=== PATIENT | male | born 1960 | race Hispanic/Latino ===

== ENCOUNTER 2019-04-27 20:49 | Emergency (ER) | payer SELFPAY ==
[2019-04-27] MEDS ORDERED: SODIUM CHLORIDE 0.9% 500 ML 500 ML IV ONE ×2 (21:01→22:25)
[2019-04-27] MEDS ORDERED: MORPHINE 4 MG/1 ML INJ IV ONE (21:01)
[2019-04-27] MEDS ORDERED: ONDANSETRON 4 MG/2 ML INJ IV ONE (21:01)
[2019-04-27 21:44] LABS: Basophils % (Auto) 0.3 % (0.0-1.8); Eosinophils % (Auto) 0.1 % (0.0-4.3); Hematocrit 49.4 % (35.5-45.6); Hemoglobin 16.6 gm/dl (11.8-15.2); Lymphocytes # (Auto) 1.1 K/mm3 (1.2-5.4); Lymphocytes % (Auto) 8.8 % (13.4-35.0); Mean Corpuscular HGB Conc 34 % (32-34); Mean Corpuscular Volume 94 fl (84-94); Monocytes # (Auto) 0.4 K/mm3 (0.0-0.8); Monocytes % (Auto) 3.4 % (0.0-7.3); Platelet Count 201 K/mm3 (140-440); Red Blood Count 5.28 M/mm3 (3.65-5.03); Red Cell Distribution Width 13.9 % (13.2-15.2)
--- NOTE | 2019-04-27 21:52 | Cat Scan Report ---
CT ABDOMEN AND PELVIS WITHOUT CONTRAST HISTORY: Abdominal pain, nausea, vomiting. COMPARISON: None TECHNIQUE: Routine abdominal and pelvic CT exam performed without contrast. Lack of intravenous cont rast limits evaluation of the vascular and solid organs.. All CT scans at this location are performed using CT dose reduction for ALARA by means of automated exposure control. FINDINGS: CT ABDOMEN: Lung Bases: No significant abnormality. Liver: No significant abnormality. Biliary: No significant abnormality. Spleen: No significant abnormality. Unenlarged. Pancreas: No significant abnormality. Adrenals: No significant abnormality. Kidneys: There is a tiny 1 mm nonobstructing stone in the mid left kidney. There is no hydronephrosis . Lymphatics: No lymphadenopathy. Vasculature: No significant abnormality. Bowel/Peritoneum: Mild gaseous distention of the stomach without evidence of obstruction. No bowel ob struction. No free air, pneumatosis, portal venous gas. No inflammatory changes. Normal appendix. CT PELVIC: : No significant abnormality. Lymphatics: No lymphadenopathy. Osseous Structures: No aggressive appearing osseous lesions. There is advanced degenerative disc dise ase at L3-L4 in the lumbar spine with significant disc height loss and reactive endplate cystic aguilar e and sclerosis. There is advanced DJD in the left hip and mild DJD in the right. Additional Findings: None IMPRESSION: 1. No acute findings. 2. Tiny 1 mm nonobstructing left intrarenal stone. Signer Name: Jarrod Massey MD Signed: 04/27/2019 9:47 PM Workstation Name: [id number]
[2019-04-27 21:55] LABS: INR 1.36 (0.87-1.13)
[2019-04-27 21:57] LABS: Alanine Aminotransferase 18 units/L (7-56); BUN/Creatinine Ratio 27; Blood Urea Nitrogen 19 mg/dL (9-20); Hemolysis Index 12; Partial Thromboplastin Time 35.8 Sec. (24.2-36.6)
[2019-04-27 22:00] LABS: Bilirubin,Direct < 0.2 mg/dL (0-0.2)
--- NOTE | 2019-04-27 22:25 | Event Note ---
Face to Face: For this encounter I have reviewed the PA/[employer] APPRENTICE documentation, treatment plan, medical decision making, and I had face to face time with this patient. I evaluated Mr. Chen. He presents with vomiting diarrhea left lower quadrant abdominal pain. I reviewed workup. He suspects food poisoning for eating days old food. I concur with this diagnosis. Discharged back to assisted facility. With elevated lactic acid do not suspect sepsis. There is no indication of SIRS.
--- NOTE | 2019-04-27 22:29 | Emergency Department Report ---
ED General Adult HPI - General Chief complaint: GI Bleed Stated complaint: N/V/D Time Seen by Provider: 04/27/19 21:05 Source: patient Mode of arrival: Ambulatory Limitations: Physical Limitation - History of Present Illness Initial comments: Patient is a 58-year-old male who presents emergency room with complaints of "food poisoning." He states he has associated nausea, vomiting, diarrhea that began earlier today. He states he has had approximate 4 episodes of each. States he has left upper quadrant abdominal pain. he states that he ate some ch icken in the half-way last night and believes that it was left over from a few days ago. pt was given Pepto-Bismol and Imodium by the half-way. He states that his vomitus appeared dark after the pepto bismol. He denies any hematochezia or black tarry stools or fever. pt has a past medical history of diabetes and PE. 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 He denies any NSAID use. Severity scale (0 -10): 5 - Related Data Previous Rx's Medication Instructions Recorded Last Taken Type Ondansetron [Zofran Odt] 4 mg PO Q8HR PRN #7 tab.rapdis 04/27/19 Unknown Rx Allergies Allergy/AdvReac Type Severity Reaction Status Date / Time No Known Allergies Allergy Unverified 04/27/19 21:23 ED Review of Systems ROS: Stated complaint: N/V/D Other details as noted in HPI Comment: All other systems reviewed and negative ED Past Medical Hx - Past Medical History Previous Medical History?: Yes Hx Hypertension: Yes Hx Diabetes: Yes Hx Arthritis: (osteoarthritis bilat knees) Additional medical history: infection in LLE. sleep apnea - Social History Smoking Status: Never Smoker Substance Use Type: None - Medications Home Medications: Home Medications Medication Instructions Recorded Confirmed Last Taken Type Ondansetron [Zofran Odt] 4 mg PO Q8HR PRN #7 tab.rapdis 04/27/19 Unknown Rx ED Physical Exam - General Limitations: Physical Limitation General appearance: alert, in no apparent distress - Head Head exam: Present: atraumatic, normocephalic - Eye Eye exam: Present: normal appearance - ENT ENT exam: Present: mucous membranes moist - Respiratory Respiratory exam: Present: normal lung sounds bilaterally. Absent: respiratory distress, wheezes, rales, rhonchi, stridor, chest wall tenderness, accessory muscle use, decreased breath sounds, prolonged expiratory - Cardiovascular Cardiovascular Exam: Present: regular rate, normal rhythm, normal heart sounds. Absent: systolic murmur, diastolic murmur, rubs, gallop - GI/Abdominal GI/Abdominal exam: Present: soft, tenderness (mild LUQ), normal bowel sounds. Absent: distended, guarding, rebound, rigid - Neurological Exam Neurological exam: Present: alert, oriented X3 - Psychiatric Psychiatric exam: Present: normal affect, normal mood - Skin Skin exam: Present: warm, dry, intact ED Course Vital Signs 04/27/19 04/27/19 04/27/19 21:17 21:40 22:10 Temperature 98.3 F Pulse Rate 73 Respiratory 18 18 18 Rate Blood Pressure 182/83 O2 Sat by Pulse 98 Oximetry ED Medical Decision Making - Lab Data Result diagrams: 04/27/19 21:32 04/27/19 21:32 Lab Results 04/27/19 04/27/19 04/27/19 Range/Units 21:30 21:30 21:32 WBC 12.0 H (4.5-11.0) K/mm3 RBC 5.28 H (3.65-5.03) M/mm3 Hgb 16.6 H (11.8-15.2) gm/dl Hct 49.4 H (35.5-45.6) % MCV 94 (84-94) fl MCH 31 (28-32) pg MCHC 34 (32-34) % RDW 13.9 (13.2-15.2) % Plt Count 201 (140-440) K/mm3 Lymph % (Auto) 8.8 L (13.4-35.0) % [place] % (Auto) 3.4 (0.0-7.3) % Eos % (Auto) 0.1 (0.0-4.3) % Baso % (Auto) 0.3 (0.0-1.8) % Lymph # 1.1 L (1.2-5.4) K/mm3 [place] # 0.4 (0.0-0.8) K/mm3 Eos # 0.0 (0.0-0.4) K/mm3 Baso # 0.0 (0.0-0.1) K/mm3 Seg Neutrophils % 87.4 H (40.0-70.0) % Seg Neutrophils # 10.5 H (1.8-7.7) K/mm3 PT (12.2-14.9) Sec. INR (0.87-1.13) APTT (24.2-36.6) Sec. VBG pH 7.358 (7.320-7.420) Sodium (137-145) mmol/L Potassium (3.6-5.0) mmol/L Chloride (98-107) mmol/L Carbon Dioxide (22-30) mmol/L Anion Gap mmol/L BUN (9-20) mg/dL Creatinine (0.8-1.5) mg/dL Estimated GFR ml/min BUN/Creatinine Ratio % Glucose (75-100) mg/dL Lactic Acid (0.7-2.0) mmol/L Calcium (8.4-10.2) mg/dL Total Bilirubin (0.1-1.2) mg/dL Direct Bilirubin (0-0.2) mg/dL Indirect Bilirubin mg/dL AST (5-40) units/L ALT (7-56) units/L Alkaline Phosphatase (35-129) units/L Total Protein (6.3-8.2) g/dL Albumin (3.9-5) g/dL Albumin/Globulin Ratio % Lipase (13-60) units/L Blood Type A NEGATIVE Antibody Screen Negative 04/27/19 04/27/19 04/27/19 Range/Units 21:32 21:32 21:32 WBC (4.5-11.0) K/mm3 RBC (3.65-5.03) M/mm3 Hgb (11.8-15.2) gm/dl Hct (35.5-45.6) % MCV (84-94) fl MCH (28-32) pg MCHC (32-34) % RDW (13.2-15.2) % Plt Count (140-440) K/mm3 Lymph % (Auto) (13.4-35.0) % [place] % (Auto) (0.0-7.3) % Eos % (Auto) (0.0-4.3) % Baso % (Auto) (0.0-1.8) % Lymph # (1.2-5.4) K/mm3 [place] # (0.0-0.8) K/mm3 Eos # (0.0-0.4) K/mm3 Baso # (0.0-0.1) K/mm3 Seg Neutrophils % (40.0-70.0) % Seg Neutrophils # (1.8-7.7) K/mm3 PT 16.6 H (12.2-14.9) Sec. INR 1.36 H (0.87-1.13) APTT 35.8 (24.2-36.6) Sec. VBG pH (7.320-7.420) Sodium 137 (137-145) mmol/L Potassium 4.3 (3.6-5.0) mmol/L Chloride 102.8 (98-107) mmol/L Carbon Dioxide 24 (22-30) mmol/L Anion Gap 15 mmol/L BUN 19 (9-20) mg/dL Creatinine 0.7 L (0.8-1.5) mg/dL Estimated GFR > 60 ml/min BUN/Creatinine Ratio 27 % Glucose 239 H (75-100) mg/dL Lactic Acid (0.7-2.0) mmol/L Calcium 9.0 (8.4-10.2) mg/dL Total Bilirubin 0.40 (0.1-1.2) mg/dL Direct Bilirubin < 0.2 (0-0.2) mg/dL Indirect Bilirubin 0.2 mg/dL AST 14 (5-40) units/L ALT 18 (7-56) units/L Alkaline Phosphatase 103 (35-129) units/L Total Protein 7.8 (6.3-8.2) g/dL Albumin 4.0 (3.9-5) g/dL Albumin/Globulin Ratio 1.1 % Lipase 19 (13-60) units/L Blood Type Antibody Screen 04/27/19 04/27/19 Range/Units 21:32 23:30 WBC (4.5-11.0) K/mm3 RBC (3.65-5.03) M/mm3 Hgb (11.8-15.2) gm/dl Hct (35.5-45.6) % MCV (84-94) fl MCH (28-32) pg MCHC (32-34) % RDW (13.2-15.2) % Plt Count (140-440) K/mm3 Lymph % (Auto) (13.4-35.0) % [place] % (Auto) (0.0-7.3) % Eos % (Auto) (0.0-4.3) % Baso % (Auto) (0.0-1.8) % Lymph # (1.2-5.4) K/mm3 [place] # (0.0-0.8) K/mm3 Eos # (0.0-0.4) K/mm3 Baso # (0.0-0.1) K/mm3 Seg Neutrophils % (40.0-70.0) % Seg Neutrophils # (1.8-7.7) K/mm3 PT (12.2-14.9) Sec. INR (0.87-1.13) APTT (24.2-36.6) Sec. VBG pH (7.320-7.420) Sodium (137-145) mmol/L Potassium (3.6-5.0) mmol/L Chloride (98-107) mmol/L Carbon Dioxide (22-30) mmol/L Anion Gap mmol/L BUN (9-20) mg/dL Creatinine (0.8-1.5) mg/dL Estimated GFR ml/min BUN/Creatinine Ratio % Glucose (75-100) mg/dL Lactic Acid 2.60 H* 2.20 H* (0.7-2.0) mmol/L Calcium (8.4-10.2) mg/dL Total Bilirubin (0.1-1.2) mg/dL Direct Bilirubin (0-0.2) mg/dL Indirect Bilirubin mg/dL AST (5-40) units/L ALT (7-56) units/L Alkaline Phosphatase (35-129) units/L Total Protein (6.3-8.2) g/dL Albumin (3.9-5) g/dL Albumin/Globulin Ratio % Lipase (13-60) units/L Blood Type Antibody Screen - Radiology Data Radiology results: report reviewed CT ABDOMEN AND PELVIS WITHOUT CONTRAST HISTORY: Abdominal pain, nausea, vomiting. COMPARISON: None TECHNIQUE: Routine abdominal and pelvic CT exam performed without contrast. Lack of intravenous contrast limits evaluation of the vascular and solid organs.. All CT scans at this location are performed using CT dose reduction for ALARA by means of automated exposure control. FINDINGS: CT ABDOMEN: Lung Bases: No significant abnormality. Liver: No significant abnormality. Biliary: No significant abnormality. Spleen: No significant abnormality. Unenlarged. Pancreas: No significant abnormality. Adrenals: No significant abnormality. Kidneys: There is a tiny 1 mm nonobstructing stone in the mid left kidney. There is no hydronephrosis. Lymphatics: No lymphadenopathy. Vasculature: No significant abnormality. Bowel/Peritoneum: Mild gaseous distention of the stomach without evidence of obstruction. No bowel obstruction. No free air, pneumatosis, portal venous gas. No inflammatory changes. Normal appendix. CT PELVIC: : No significant abnormality. Lymphatics: No lymphadenopathy. Osseous Structures: No aggressive appearing osseous lesions. There is advanced degenerative disc disease at L3-L4 in the lumbar spine with significant disc height loss and reactive endplate cystic change and sclerosis. There is advanced DJD in the left hip and mild DJD in the right. Additional Findings: None IMPRESSION: 1. No acute findings. 2. Tiny 1 mm nonobstructing left intrarenal stone. Signer Name: Jarrod Massey MD Signed: 04/27/2019 9:47 PM Workstation Name: [id number] Transcribed By: MAMADOU Dictated By: Jarrod Massey MD Electronically Authenticated By: Jarrod Massey MD Signed Date/Time: 04/27/192146 DD/ 44 TD/TT: - Medical Decision Making Patient is a 58-year-old male who presents emergency room with complaints of "food poisoning." He states he has associated nausea, vomiting, diarrhea that began earlier today. He states he has had approximate 4 episodes of each. States he has left upper quadrant abdominal pain. he states that he ate some chicken in the half-way last night and believes that it was left over from a few days ago. pt was given Pepto-Bismol and Imodium by the half-way. He states that his vomitus appeared dark after the pepto bismol. He denies any hematochezia or black tarry stools or fever. pt has a past medical history of diabetes and PE. 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 He denies any NSAID use. vitals with elevated blood pressure otherwise stable. on exam: mild LUQ abdominal discomfort, no guarding, no rebound, no peritoneal signs. labs with elevated blood sugar at 239, lactic acid mildly elevated, venous pH is normal. pt is not meeting any signs for sepsis or DKA. CT abd p carley: 1. No acute findings. 2. Tiny 1 mm nonobstructing left intrarenal stone. Patient given morphine, Zofran, 1 L of IV fluids. Patient was feeling much better. symptoms and examination consistent with gastroenteritis. He had no episodes of vomiting while in the emergency department. Patient was able tolerate by mouth intake. pt was evaluated by Dr. Rin Lugo who agrees with treatment plan and for pt to be discharged back to his half-way facility. pt given prescription for zofran. advised pt to please take medication as prescribed as needed. Please increase your fluid intake over the next several days. Eat a bland diet. Follow-up with a primary care doctor in the next 2-3 days. Return to emergency room immediately for any new or worsening symptoms. - Differential Diagnosis gastroenteritis, gastritis, PUD, GERD, colitis, cholecystitis Critical care attestation.: If time is entered above; I have spent that time in minutes in the direct care of this critically ill patient, excluding procedure time. ED Disposition Clinical Impression: Nausea vomiting and diarrhea, Abdominal pain, left upper quadrant, Elevated blood sugar Disposition: DC-01 TO HOME OR SELFCARE Is pt being admited?: No Does the pt Need Aspirin: No Condition: Stable Instructions: Gastroenteritis (ED), Food Poisoning (ED) Additional Instructions: Please take medication as prescribed as needed. Please increase your fluid intake over the next several days. Eat a bland diet. Follow-up with a primary care doctor in the next 2-3 days. Return to emergency room immediately for any new or worsening symptoms. Prescriptions: Ondansetron [Zofran Odt] 4 mg PO Q8HR PRN #7 tab.rapdis PRN Reason: Nausea And Vomiting Referrals: your, primary care doctor [Other] - 2-3 Days Time of Disposition: 23:54 Print Language: [id number]
[2019-04-28 02:09] VITALS: BP 148/85
== END 2019-04-28 01:20 | disposition home or self-care (01) ==
LOC: ED 20:49
DX: R10.12 Left upper quadrant pain (principal); R11.2 Nausea with vomiting, unspecified; R19.7 Diarrhea, unspecified; E11.65 Type 2 diabetes mellitus with hyperglycemia; I10 Essential (primary) hypertension; M17.0 Bilateral primary osteoarthritis of knee
CPT/HCPCS: 36415; 74176; 80048; 80076; 82140; 82805; 83690; 85025; 85610; 85730; 86850; 86900; 86901; 93005; 93010; 96361; 96374; 96375; 99284; J2270; J2405; J7040